=== PATIENT | male | born 1970 | race African-American/Black ===

== ENCOUNTER 2017-02-27 12:53 | Inpatient (IN) | payer MEDICARE, MEDICAID ==
[~2017-02-27] VITALS: Ht 175.3 cm; Wt 70.3 kg
[2017-02-27 14:39] LABS: CHLORIDE 102 mEq/L (98-107)
[2017-02-27 14:40] LABS: BASOPHILS % 0.7 % (0.0-2.0); EOSINOPHILS % 3.2 % (0.0-5.0); HEMATOCRIT. 34.6 % (42.0-52.0); HEMOGLOBIN. 11.2 g/dL (14.0-18.0); LYMPHOCYTES % 7.8 % (20.0-50.0); MEAN CORPUSCULAR VOLUME 86.1 fL (80.0-94.0); MEAN PLATELET VOLUME 7.9 fl (7.4-10.4); MONOCYTES % 10.1 % (2.0-8.0); NEUTROPHILS % 78.2 % (40.0-76.0); PLATELET 298 x1000/uL (130-400); RED BLOOD CELL COUNT 4.02 mill/uL (4.7-6.1); RED CELL DISTRIBUTION WIDTH 16.2 % (11.6-14.6)
[2017-02-27 14:45] LABS: CARBON DIOXIDE 31 mEq/L (21-32)
[2017-02-27] MEDS ORDERED: ALBUTEROL (0.5%) 2.5MG/0.5ML NEB HHN ONE (15:00)
[2017-02-27] MEDS ORDERED: INSULIN REGULAR (HUMULIN R) 300UNITS/3ML IV ONE (15:00)
[2017-02-27] MEDS ORDERED: CALCIUM GLUCONATE 1,000 MG in DEXT 5% WATER 100 ML IV ONE (15:00)
[2017-02-27] MEDS ORDERED: DEXTROSE 50% WATER 50ML SYRINGE IV ONE (15:00)
[2017-02-27] MEDS ORDERED: GUAIFENESIN 200MG/10ML SUGAR FREE UDC PO PRN (15:45)
[2017-02-27] MEDS ORDERED: LORAZEPAM 2MG/ML CPJ IV PRN (15:45)
[2017-02-27] MEDS ORDERED: MAGNESIUM/ALUMINUM HYDROXIDE/SIMETHICONE 30ML UDC PO PRN (15:45)
[2017-02-27] MEDS ORDERED: ACETAMINOPHEN 325MG TABLET PO PRN (15:45)
[2017-02-27] MEDS ORDERED: CLONIDINE 0.1MG TABLET PO PRN (15:45)
[2017-02-27] MEDS ORDERED: DEXTROSE 50% WATER 50ML SYRINGE IV PRN (15:45)
[2017-02-27] MEDS ORDERED: TRAMADOL 50MG TABLET PO PRN (15:45)
[2017-02-27] MEDS ORDERED: DIPHENHYDRAMINE 50MG/ML VIAL IV PRN (15:45)
[2017-02-27] MEDS ORDERED: IPRATROPIUM/ALBUTEROL 0.5-3(2.5)MG/3ML NEB INH PRN (15:45)
[2017-02-27] MEDS ORDERED: SODIUM POLYSTYRENE SULFONATE 15 G/60 ML BOT PO NR (15:45)
[2017-02-27] MEDS ORDERED: ONDANSETRON HCL 4MG/2ML VIAL IV PRN (15:45)
[2017-02-27] MEDS ORDERED: DOCUSATE SODIUM 100MG CAPSULE PO PRN (15:45)
[2017-02-27] MEDS ORDERED: ZOLPIDEM TARTRATE 5MG TABLET PO PRN (21:00)
[2017-02-27] MEDS ORDERED: NA PHOS,M-B/NA PHOS,DI-BA ENEMA 118ML PR PRN (21:00)
[2017-02-27] MEDS: METOPROLOL TARTRATE 25MG TABLET PO SCH (21:25)
[2017-02-27 23:30] VITALS: BP 148/98
[2017-02-28] VITALS: BP 148/98
[2017-02-28 00:35] LABS: TROPONIN I 0.08 ng/mL (0.00-0.04)
[2017-02-28 04:00] VITALS: BP 156/91
[2017-02-28 07:03] LABS: CREATINE KINASE MB FRACTION 3.5 ng/mL (0.5-3.6); TROPONIN I 0.08 ng/mL (0.00-0.04)
[2017-02-28 08:00] VITALS: BP 133/76
[2017-02-28] MEDS: INSULIN LISPRO 100 UNITS/ML SUBCUT SCH ×3 (08:10→18:10)
[2017-02-28] MEDS: BLOOD SUGAR DIAGNOSTIC STRIP TEST SCH ×3 (08:11→18:00)
[2017-02-28] MEDS: METOPROLOL TARTRATE 25MG TABLET PO SCH (09:00)
[2017-02-28] MEDS ORDERED: ASPIRIN 325MG EC TABLET PO SCH (09:00)
[2017-02-28] MEDS ORDERED: FOLIC ACID/VITAMIN B COMP W-C TABLET PO SCH (09:00)
[2017-02-28] MEDS ORDERED: PANTOPRAZOLE SODIUM 40 MG/VIAL IV SCH (09:00)
[2017-02-28] MEDS: SEVELAMER CARBONATE 800 MG TABLET PO SCH ×3 (10:12→18:25)
[2017-02-28 12:00] VITALS: BP 142/84
[2017-02-28 16:00] VITALS: BP 113/62
[2017-03-01] MEDS ORDERED: SILVER SULFADIAZINE 1% CREAM 50GM TOP SCH (09:00)
== END 2017-02-28 20:20 | disposition left against medical advice (07) | DRG 314 ==
LOC: ER 13:13 → 7WST 15:17 → SUPCPDRO 15:30 → ENRESERV 21:55 → 7WST 23:30
PROVIDERS: ADMIT Internal Medicine; ATTEND Internal Medicine
DX: T82.838A Hemorrhage due to vascular prosthetic devices, implants and grafts, initial encounter (principal); N18.6 End stage renal disease; D62 Acute posthemorrhagic anemia; E44.1 Mild protein-calorie malnutrition; I12.0 Hypertensive chronic kidney disease with stage 5 chronic kidney disease or end stage renal disease; D63.8 Anemia in other chronic diseases classified elsewhere; E11.22 Type 2 diabetes mellitus with diabetic chronic kidney disease; E11.319 Type 2 diabetes mellitus with unspecified diabetic retinopathy without macular edema; E87.5 Hyperkalemia; Z53.21 Procedure and treatment not carried out due to patient leaving prior to being seen by health care provider; E87.70 Fluid overload, unspecified; H54.7 Unspecified visual loss; Y84.1 Kidney dialysis as the cause of abnormal reaction of the patient, or of later complication, without mention of misadventure at the time of the procedure; Z99.2 Dependence on renal dialysis; Z79.4 Long term (current) use of insulin
CPT/HCPCS: 36415; 71010; 80053; 80061; 82550; 82553; 82962; 83036; 84484; 85025; 93005; 96365; 96375; 96376; 97163; 97166; 99291; C9113; J1200; J1815; J7611

== ENCOUNTER 2017-06-26 13:54 | Emergency (ER) | payer MEDICARE, MEDICAID ==
[~2017-06-26] VITALS: Ht 180.3 cm; Wt 75.0 kg
[2017-06-26 13:59] VITALS: BP 141/77
== END 2017-06-26 16:18 | disposition home or self-care (01) ==
LOC: ER 14:10
DX: E11.22 Type 2 diabetes mellitus with diabetic chronic kidney disease (principal); I12.0 Hypertensive chronic kidney disease with stage 5 chronic kidney disease or end stage renal disease; G93.49 Other encephalopathy; N18.6 End stage renal disease; Z99.2 Dependence on renal dialysis
CPT/HCPCS: 99283